=== PATIENT | male | born 1985 | race Caucasian/White ===

== ENCOUNTER 2021-02-16 01:59 | Emergency (ER) | payer SELFPAY ==
[2021-02-16] MEDS ORDERED: Lidocaine 2% Jelly 5 ML Tube MUCMEM STA (02:50)
--- NOTE | 2021-02-16 02:57 | EDM.PDOC ---
ED HPI GENERAL MEDICAL PROBLEM - General Chief Complaint: ENT Problem Stated Complaint: THRUSH Time Seen by Provider: 02/16/21 02:27 Source of Information: Reports: Patient History Limitations: Reports: No Limitations - History of Present Illness INITIAL COMMENTS - FREE TEXT/NARRATIVE: Mr. Eisenberg is a 35-year-old man who now presents the ED with oral pain, stating that he was on Bactrim for 7 days in January, for treatment of a finger infection. He then developed oral pain about 2 weeks ago. He states that he was seen at the [facility] walk-in [facility] and diagnosed with oral thrush. He was prescribed 2 pills of a medicine he does not know the name of, along with Magic mouthwash (viscous lidocaine, diphenhydramine, and Maalox). He states that the Magic mouthwash gives him good relief for about 4 hours, however, he is now out of it. No recent fever. No prior similar symptoms. Here in the ED, the patient is found to be hemodynamically stable, afebrile, saturating 98% on room air. He is angry and somewhat hostile, but does not appear to be in acute distress. Other than his oral pain, the patient denies having a recent fever, chills, sore throat, ear pain, nasal or sinus congestion, cough, dyspnea, chest pain, palpitations, nausea, vomiting, constipation, diarrhea, abdominal pain, urinary symptoms, recent weight gain or weight loss, recent bloody bowel movements or black bowel movements, recent joint aches, headaches, or rashes. The patient does not have a PCP. He has not received a COVID vaccination. Oral/Mouth Pain Score (Numeric/FACES): 7 - Related Data Allergies Allergy/AdvReac Type Severity Reaction Status Date / Time No Known Allergies Allergy Verified 02/16/21 02:19 Home Meds: Home Meds . [No Known Home Meds] 02/16/21 [History] Past Medical History - Past Surgical History HEENT Surgical History: Reports: Oral Surgery (dental extractions), Tonsillectomy Cardiovascular Surgical History: Reports: Vascular Surgery (left iliac artery stent) Social & Family History - Tobacco Use Tobacco Use Status *Q: Former Tobacco User Years of Tobacco use: 3 Packs/Tins Daily: 0.5 Month/Year Tobacco Last Used: Quit 2004 Tobacco Use Comment: Started smoking 2001 - Alcohol Use Alcohol Use History: Yes Alcohol Use Frequency: Socially - Recreational Drug Use Recreational Drug Use: No - Living Situation & Occupation Living situation: Reports: Single, Alone Occupation: Unemployed ED ROS ENT - Review of Systems Review Of Systems: Comprehensive ROS is negative, except as noted in HPI. ED EXAM, ENT - Physical Exam Exam: See Below Exam Limited By: No Limitations General Appearance: Alert, WD/WN, No Apparent Distress Eye Exam: Bilateral Eye: EOMI, Normal Inspection Ears: Normal External Exam, Normal Canal, Hearing Grossly Normal, Normal TMs Nose: Normal Inspection, Normal Mucousa, No Blood Mouth/Throat: Normal Lips, Other (Aphthous stomatitis to the lower midline vestibule gingiva, with a second aphthous stomatitis lesion to the right underside of the tongue. No other oral lesions seen, however, there is likely hypertrophic papillae of the tongue.) Head: Atraumatic, Normocephalic Neck: Normal Inspection, Supple, Non-Tender, Full Range of Motion. No: Lymphadenopathy (L), Lymphadenopathy (R) Course - Vital Signs Last Recorded V/S: Last Vital Signs Temp 36.2 C 02/16/21 02:16 Pulse 76 02/16/21 02:16 Resp 16 02/16/21 02:16 BP 125/84 02/16/21 02:16 Pulse Ox 98 02/16/21 02:16 - Orders/Labs/Meds Orders: Active Orders 24 hr Category Date Time Status Lidocaine 2% [Xylocaine 2% Jelly] Med 02/16/21 02:50 Stat 5 ml MUCMEM ONETIME STA Medication Orders Lidocaine HCl (Lidocaine 2% Jelly 5 Ml Tube) 5 ml MUCMEM ONETIME STA Stop: 02/16/21 02:51 Meds: Medications Generic Name Dose Route Start Last Admin Trade Name Freq PRN Reason Stop Dose Admin Lidocaine HCl 5 ml 02/16/21 02:50 Lidocaine 2% Jelly 5 Ml Tube MUCMEM 02/16/21 02:51 ONETIME STA - Re-Assessments/Exams Free Text/Narrative Re-Assessment/Exam: 02/16/21 02:51 It is understandable why the walk-in clinic might have thought that the patient had oral thrush, however, he in fact has 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 Unfortunately, there are no medications that have been shown to alter the course of this outbreak, however, the patient is found that the Magic mouthwash that he was prescribed at the walk-in clinic helps with his pain for a few hours. I will prescribe some more. For today's purposes, the patient will be given some viscous lidocaine which he can swish and spit here in the ED. Departure - Departure Time of Disposition: 02:53 Disposition: Home, Self-Care 01 Condition: Good Clinical Impression: Aphthous stomatitis - Discharge Information *PRESCRIPTION DRUG MONITORING PROGRAM REVIEWED*: Not Applicable *COPY OF PRESCRIPTION DRUG MONITORING REPORT IN PATIENT LON: Not Applicable Referrals: PCP,None [Primary Care Provider] - Additional Instructions: You were seen in the emergency room for continued mouth pain despite treatment, in the setting of being diagnosed with oral thrush. On examination, you do not have thrush, instead, you have oral stomatitis due to aphthous ulcers, also known as aphthous stomatitis. As discussed, unfortunately, there are no medicines to treat aphthous stomatitis - it will have to run its course. As discussed, aphthous stomatitis is thought to be due to a virus, although the exact virus is not known. You should expect to have painful outbreaks with any injury to your mouth or under stressful conditions. A prescription for "magic mouthwash" has been provided to you. You may swish and spit (do not swallow) 5 mL of the solution every hour or two, as needed for oral discomfort. If any other problems, please do not hesitate to return to the ER. Sepsis Event Note (ED) - Focused Exam Vital Signs: Vital Signs Temp Pulse Resp BP Pulse Ox 02/16/21 02:16 36.2 C 76 16 125/84 98 - My Orders Last 24 Hours: My Active Orders 02/16/21 02:50 Lidocaine 2% [Xylocaine 2% Jelly] 5 ml MUCMEM ONETIME STA - Assessment/Plan Last 24 Hours: My Active Orders 02/16/21 02:50 Lidocaine 2% [Xylocaine 2% Jelly] 5 ml MUCMEM ONETIME STA
[2021-02-16] MEDS ORDERED: Lidocaine 2% Viscous Solution 15 ML Cup PO ONE (02:58)
== END 2021-02-16 03:10 | disposition home or self-care (01) ==
LOC: JD.ED 01:59
DX: K12.0 Recurrent oral aphthae (principal); Z87.891 Personal history of nicotine dependence
CPT/HCPCS: 99282; A9270

== ENCOUNTER 2021-05-23 16:58 | Emergency (ER) | payer BC ==
--- NOTE | 2021-05-23 17:39 | EDM.PDOC ---
ED HPI GENERAL MEDICAL PROBLEM - General Chief Complaint: General Stated Complaint: DRESSING CHANGE Time Seen by Provider: 05/23/21 17:18 Source of Information: Reports: Patient History Limitations: Reports: No Limitations - History of Present Illness INITIAL COMMENTS - FREE TEXT/NARRATIVE: 35-year-old male presents the emergency department today requesting to have his PICC line dressing changed. Patient states that the PICC line was placed on May 18 and male. He states he start antibiotic therapy every 24 hours which he has doing at home. Patient states he left male clinic today and flew back and was sweaty and the OpSite started lifting so he just put some tape down to secure it for now. He states he does have an appoint with his primary care provider tomorrow however he does not feel that he can wait and does not want to get infected. He denies any other complaints at this time. - Related Data Allergies Allergy/AdvReac Type Severity Reaction Status Date / Time sulfamethoxazole Allergy Severe Other Verified 05/23/21 17:25 [From Bactrim] trimethoprim [From Bactrim] Allergy Severe Other Verified 05/23/21 17:25 Home Meds: Home Meds Penicillin G Potassium [Pfizerpen] 24 milliu IV Q24H 05/23/21 [History] Past Medical History - Infectious Disease History Infectious Disease History: Reports: Other (See Below) Other Infectious Disease History: syphlyus - Past Surgical History HEENT Surgical History: Reports: Oral Surgery, Tonsillectomy Cardiovascular Surgical History: Reports: Vascular Surgery Social & Family History - Tobacco Use Tobacco Use Status *Q: Current Every Day Tobacco User Years of Tobacco use: 3 Packs/Tins Daily: 0.5 - Caffeine Use Caffeine Use: Reports: Coffee - Recreational Drug Use Recreational Drug Use: No - Living Situation & Occupation Living situation: Reports: Single, Alone Occupation: Unemployed ED ROS GENERAL - Review of Systems Review Of Systems: Comprehensive ROS is negative, except as noted in HPI. ED EXAM, GENERAL - Physical Exam Exam: See Below Exam Limited By: No Limitations General Appearance: Alert, WD/WN, No Apparent Distress Ears: Normal External Exam, Hearing Grossly Normal Nose: Normal Inspection Throat/Mouth: Normal Inspection, Normal Lips, Normal Voice, No Airway Compromise Head: Atraumatic, Normocephalic Neck: Normal Inspection, Supple Respiratory/Chest: No Respiratory Distress, No Accessory Muscle Use Cardiovascular: Normal Peripheral Pulses, Regular Rate, Rhythm GI/Abdominal: No Distention (Male) Exam: Deferred Rectal (Males) Exam: Deferred Back Exam: Normal Inspection Extremities: Normal Inspection Neurological: Alert, Oriented, Normal Cognition Psychiatric: Normal Affect, Normal Mood Skin Exam: Warm, Dry, Intact, Normal Color, No Rash Lymphatic: No Adenopathy Course - Vital Signs Text/Narrative:: Upon evaluation, patient does have PICC line to right AC. Dressing is lifted and haphazardly secured with paper tape. We will have nursing staff perform a dressing change on the patient and allow him to be discharged home. Last Recorded V/S: Last Vital Signs Temp 98.4 F 05/23/21 17:33 Pulse 97 05/23/21 17:33 Resp 20 05/23/21 17:33 BP 147/98 H 05/23/21 17:33 Pulse Ox 96 05/23/21 17:33 Departure - Departure Time of Disposition: 18:08 Disposition: Home, Self-Care 01 Condition: Good Clinical Impression: Change of dressing - Discharge Information Referrals: PCP,Not In Area [Primary Care Provider] - Forms: ED Department Discharge Additional Instructions: You were seen in the emergency department today with request to have your dressing to your PICC line changed. Does not appear to be any sign or symptom of infection. Dressing was changed per the nursing staff. Follow-up with your primary care provider tomorrow as scheduled. Should your condition worsen or change, do not hesitate returning to the emergency department. Sepsis Event Note (ED) - Focused Exam Vital Signs: Vital Signs Temp Pulse Resp BP Pulse Ox 05/23/21 17:33 98.4 F 97 20 147/98 H 96
== END 2021-05-23 18:30 | disposition home or self-care (01) ==
LOC: JD.ED 16:58
DX: Z48.01 Encounter for change or removal of surgical wound dressing (principal); Z72.0 Tobacco use; Z88.2 Allergy status to sulfonamides
CPT/HCPCS: 99281

== ENCOUNTER 2024-04-08 00:52 | Emergency (ER) | payer SELFPAY ==
[2024-04-08] MEDS ORDERED: Sodium Chloride 0.9% 10 ML Syringe FLUSH PRN (01:46)
[2024-04-08 01:53] LABS: BASOPHILS ABSOLUTE AUTO 0.1 K/mm3 (0.0-0.2); BASOPHILS PERCENT AUTO 0.5 % (0.0-1.0); EOSINOPHILS ABSOLUTE AUTO 0.1 K/mm3 (0.0-0.4); EOSINOPHILS PERCENT AUTO 0.5 % (0.0-6.0); HEMATOCRIT 46.3 % (42.0-52.0); HEMOGLOBIN 16.3 gm/dl (14.0-18.0); IMMATURE GRAN ABSOLUTE AUTO 0.02 K/mm3 (0.00-0.05); IMMATURE GRAN PERCENT AUTO 0.2 % (0.0-0.4); LYMPHOCYTES ABSOLUTE AUTO 2.7 K/mm3 (1.0-4.8); LYMPHOCYTES PERCENT AUTO 29.6 % (24.0-44.0); MEAN CORPUSCULAR HEMOGLOBIN 29.6 pg (28.0-32.0); MEAN CORPUSCULAR HGB CONC 35.2 g/dl (32.0-36.0); MEAN CORPUSCULAR VOLUME 84.2 fl (83.0-99.0); MEAN PLATELET VOLUME 9.9 fl (9.4-12.4); MONOCYTES ABSOLUTE AUTO 0.7 K/mm3 (0.0-0.8); MONOCYTES PERCENT AUTO 7.9 % (0.0-8.0); NEUTROPHILS ABSOLUTE AUTO 5.7 K/mm3 (1.8-7.7); NEUTROPHILS PERCENT AUTO 61.3 % (41.0-71.0); PLATELET COUNT,PLT 339 K/mm3 (150-400); WHITE BLOOD CELL COUNT,WBC 9.23 K/mm3 (3.9-11.3)
[2024-04-08 02:07] LABS: A/G RATIO 1.1 (1-2); ALBUMIN 3.6 g/dl (3.4-5.0); ANION GAP 18.6 (5-15); BILIRUBIN TOTAL 1.8 mg/dL (0.2-1.0); BUN/CREATININE RATIO 11.7 (14-18); CREATININE 1.2 mg/dL (0.7-1.3); EST CRCL DRUG DOSING (CG) 88.02 mL/min; MAGNESIUM 1.6 mg/dL (1.8-2.4); POTASSIUM,K 3.6 mEq/L (3.5-5.1)
[2024-04-08] MEDS: Magnesium Oxide 400 MG Tab PO ONE (03:30)
== END 2024-04-08 03:38 | disposition home or self-care (01) ==
LOC: JD.ED 00:52
DX: R00.2 Palpitations (principal); F14.90 Cocaine use, unspecified, uncomplicated; Z88.2 Allergy status to sulfonamides
CPT/HCPCS: 36415; 71045; 80053; 83690; 83735; 84484; 85025; 93005; 99285; A9270; 93010; 99282